=== PATIENT | female | born 1950 | race Caucasian/White ===

== ENCOUNTER 2019-04-02 14:28 | Emergency (ER) | payer MEDICARE ==
[~2019-04-02] VITALS: Ht 165.1 cm; Wt 88.9 kg
--- NOTE | 2019-04-02 14:35 | NUR ---
DR ALEJANDRE AT BEDSIDE
--- NOTE | 2019-04-02 14:35 | NUR ---
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 ON PREDNISONE X 3 DAYS FOR ASTHMA. TO ER BED 7, HOOKED TO MONITOR, CHANGED TO GOWN, AWAITING MD RODRIGUEZ.
[2019-04-02 14:50] LABS: BASOPHILS # (AUTO) 0.1 /CMM (0.0-0.2); BASOPHILS % (AUTO) 0.4 % (0.0-2.0); EOSINOPHILS % (AUTO) 0.3 % (0.0-6.0); HEMATOCRIT 44 % (33-45); HEMOGLOBIN 14.4 g/dL (11.5-14.8); LYMPHOCYTES # (AUTO) 1.1 /CMM (0.8-4.8); LYMPHOCYTES % (AUTO) 8.1 % (20.0-44.0); MEAN CORPUSCULAR HGB CONC 33 g/dl (31.0-36.0); MEAN CORPUSCULAR VOLUME 86 fL (82-100); MONOCYTES # (AUTO) 0.5 /CMM (0.1-1.30); MONOCYTES % (AUTO) 3.5 % (2.0-12.0); NEUTROPHILS # (AUTO) 11.8 /CMM (1.8-8.9); NEUTROPHILS % (AUTO) 87.7 % (43.0-81.0); PLATELET COUNT (AUTO) 345 /CMM (150-450); RED BLOOD CELL COUNT(AUTO) 5.15 MIL/uL (4.0-5.2); WHITE BLOOD COUNT (AUTO) 13.5 K/uL (4.3-11.0)
[2019-04-02] MEDS ORDERED: IV NS 0.9% 1,000 ML BAG IV ONE ×3 (15:00→16:30)
[2019-04-02 15:17] LABS: CALCIUM, SERUM 9.7 mg/dL (8.5-10.1); CREATININE 1.1 mg/dL (0.6-1.3); POTASSIUM 3.9 mmol/L (3.5-5.1)
[2019-04-02] MEDS ORDERED: INSULIN REGULAR, HUMAN 100 UNIT/ML 10 ML VIAL SQ ONE (16:00)
--- NOTE | 2019-04-02 17:33 | NUR ---
IV removed. Catheter intact and site benign. Pressure and 4x4 applied to site. No bleeding noted.Patient discharged to home with friend Joyce Rosie in stable condition. Written and verbal after care instructions given. Patient verbalizes understanding of instruction.
[2019-04-02 17:35] VITALS: BP 146/80
== END 2019-04-02 17:35 | disposition home or self-care (01) ==
LOC: ER 14:30
DX: E11.65 Type 2 diabetes mellitus with hyperglycemia (principal); R79.89 Other specified abnormal findings of blood chemistry; E86.0 Dehydration; D72.829 Elevated white blood cell count, unspecified; E87.1 Hypo-osmolality and hyponatremia; J44.9 Chronic obstructive pulmonary disease, unspecified; I10 Essential (primary) hypertension; E03.9 Hypothyroidism, unspecified; E78.5 Hyperlipidemia, unspecified; E66.9 Obesity, unspecified; Z68.32 Body mass index [BMI] 32.0-32.9, adult; Z79.51 Long term (current) use of inhaled steroids; Z88.2 Allergy status to sulfonamides; Z60.2 Problems related to living alone
CPT/HCPCS: 80048; 82010; 82962; 85025; 93005; 96360; 99284; J7030; J7040

== ENCOUNTER 2024-10-20 18:22 | Inpatient (IN) | payer MEDICARE ==
[~2024-10-20] VITALS: Ht 165.1 cm; Wt 89.0 kg
[2024-10-20 18:54] LABS: BASOPHILS % (AUTO) 0.2 % (0.0-2.0); HEMATOCRIT 45 % (33-45); LYMPHOCYTES % (AUTO) 12.6 % (20.0-44.0); MEAN CORPUSCULAR HEMOGLOBIN 28 PG (26.0-33.0); MEAN CORPUSCULAR HGB CONC 34 g/dl (31.0-36.0); MEAN CORPUSCULAR VOLUME 82 fL (82-100); MONOCYTES # (AUTO) 1.2 K/uL (0.1-1.30); MONOCYTES % (AUTO) 7.7 % (2.0-12.0); NEUTROPHILS # (AUTO) 12.3 K/uL (1.8-8.9); NEUTROPHILS % (AUTO) 79.5 % (43.0-81.0); PLATELET COUNT (AUTO) 327 K/uL (150-450); RED BLOOD CELL COUNT(AUTO) 5.43 MIL/uL (4.0-5.2); RED CELL DISTRIBUTION WIDTH 15.2 % (11.5-15.0); WHITE BLOOD COUNT (AUTO) 15.5 K/uL (4.3-11.0)
[2024-10-20 19:05] LABS: CALCIUM, SERUM 9.5 mg/dL (8.5-10.1); CARBON DIOXIDE 25 mmol/L (21-32); CHLORIDE 99 mmol/L (98-107); CREATININE 0.8 mg/dL (0.6-1.3); GLUCOSE 188 mg/dL (74-106); POTASSIUM 3.9 mmol/L (3.5-5.1); SODIUM SERUM 136 mmol/L (136-145); UREA NITROGEN, BLOOD 18 mg/dL (7-18)
[2024-10-20 19:12] LABS: ALANINE AMINOTRANSFERASE 21 U/L (12-78); ALBUMIN 3.9 g/dL (3.4-5.0); ALKALINE PHOSPHATASE 114 U/L (46-116); ASPARTATE AMINOTRANSFERASE 17 U/L (15-37); BILIRUBIN,DIRECT 0.2 mg/dL (0.0-0.2); BILIRUBIN,TOTAL 0.7 mg/dL (0.2-1.0); TOTAL PROTEIN, SERUM 7.8 g/dL (6.4-8.2)
[2024-10-20] MEDS ORDERED: PIPERACI/TAZO 3.375GM/D5W 50ML PB IV ONE (19:13)
[2024-10-20] MEDS ORDERED: VANCOMYCIN 1 GM /D5W 250 ML PB IV ONE (19:13)
[2024-10-20 19:24] LABS: SERUM AMMONIA < 10 umol/L (11-32)
[2024-10-20] MEDS: VANCOMYCIN 1 GM in IV D5W 250 ML IV ONE (19:30)
[2024-10-20] MEDS: IV NS 0.9% 1,000 ML BAG IV ONE (19:30)
[2024-10-20] MEDS: PIPERACILLIN /TAZOBACTAM 3.375 G in IV D5W 50 ML IV ONE (19:30)
[2024-10-20 19:32] LABS: INR 1.07 (0.91-1.10)
[2024-10-20] MEDS: LORAZEPAM INJ 2 MG/ML VIAL IV ONE (20:07)
[2024-10-20] MEDS ORDERED: LORAZEPAM INJ 2 MG/ML VIAL ONE (20:08)
[2024-10-20 20:16] LABS: APPEARANCE,URINE SLIGHTLY CLOUDY (CLEAR); BILIRUBIN,URINE NEGATIVE (NEGATIVE); BLOOD, URINE 1+ Ery/uL (NEGATIVE); COLOR,URINE YELLOW (YELLOW); KETONES,URINE 3+ mg/dL (NEGATIVE); LEUKOCYTE ESTERASE ,URINE NEGATIVE (NEGATIVE); NITRITE, URINE NEGATIVE (NEGATIVE); PROTEIN,URINE 1+ mg/dl (NEGATIVE); UGLUCOSE 1+ mg/dL (NEGATIVE); UROBILINOGEN,URINE 0.2 EU/dL (0.2)
[2024-10-20 20:35] LABS: SQUAMOUS EPITHELIAL CELL,UR Many /HPF (None Seen)
[2024-10-20 20:37] LABS: ADD URINE CULTURE YES; BACTERIA,URINE Moderate /HPF (None Seen)
[2024-10-20] MEDS: ENOXAPARIN SODIUM 40 MG/0.4 ML DISP.SYRIN SQ SCH (21:30)
[2024-10-20] MEDS ORDERED: MAGNESIUM HYDROXIDE 30 ML UDC PO PRN (21:30)
[2024-10-20] MEDS ORDERED: ACETAMINOPHEN 325 MG TABLET PO PRN (21:30)
[2024-10-20] MEDS ORDERED: ONDANSETRON HCL/PF 4 MG/2 ML VIAL IVP PRN (21:30)
[2024-10-20] MEDS ORDERED: MAG HYDROX/AL HYDROX/SIMETH 30 ML UDC PO PRN (21:30)
[2024-10-20] MEDS ORDERED: ENOXAPARIN SODIUM 40 MG/0.4 ML DISP.SYRIN SQ ONE (22:15)
[2024-10-20] MEDS ORDERED: DEXTROSE 50%-WATER 50 ML DISP.SYRIN IV PRN (22:30)
[2024-10-20] MEDS: ACETAMINOPHEN 650 MG/SUPP.RECT RC PRN (23:09)
[2024-10-21] MEDS: IV NS 0.9% 1,000 ML IV PRN (00:47)
[2024-10-21 00:55] VITALS: BP 132/65; TEMP 99; O2SAT 98
[2024-10-21] MEDS ORDERED: PIPERACILLIN /TAZOBACTAM 3.375 G in IV D5W 50 ML IV SCH (03:30)
[2024-10-21 04:00] VITALS: BP 111/67; TEMP 99.3; O2SAT 97
[2024-10-21] MEDS: PIPERACILLIN /TAZOBACTAM 3.375 G in IV D5W 50 ML IV SCH (04:30)
[2024-10-21] MEDS: PIPERACI/TAZO 3.375GM/D5W 50ML PB IV ONE (04:30)
[2024-10-21 06:56] LABS: BASOPHILS % (AUTO) 0.1 % (0.0-2.0); HEMATOCRIT 36 % (33-45); HEMOGLOBIN 11.9 g/dL (11.5-14.8); LYMPHOCYTES # (AUTO) 1.3 K/uL (0.8-4.8); LYMPHOCYTES % (AUTO) 10.9 % (20.0-44.0); MEAN CORPUSCULAR HEMOGLOBIN 28 PG (26.0-33.0); MEAN CORPUSCULAR HGB CONC 33 g/dl (31.0-36.0); MEAN CORPUSCULAR VOLUME 83 fL (82-100); MONOCYTES # (AUTO) 1.3 K/uL (0.1-1.30); NEUTROPHILS # (AUTO) 9.1 K/uL (1.8-8.9); PLATELET COUNT (AUTO) 220 K/uL (150-450); RED BLOOD CELL COUNT(AUTO) 4.29 MIL/uL (4.0-5.2); RED CELL DISTRIBUTION WIDTH 15.3 % (11.5-15.0); WHITE BLOOD COUNT (AUTO) 11.7 K/uL (4.3-11.0)
[2024-10-21 07:06] LABS: LACTIC ACID 1.3 mmol/L (0.4-2.0)
[2024-10-21 07:20] LABS: CALCIUM, SERUM 7.7 mg/dL (8.5-10.1); CREATININE 0.6 mg/dL (0.6-1.3); MAGNESIUM 1.4 mg/dL (1.8-2.4); PHOSPHORUS 3.8 mg/dL (2.5-4.9); POTASSIUM 3.5 mmol/L (3.5-5.1)
[2024-10-21 08:00] VITALS: BP 108/74; TEMP 97.7
[2024-10-21] MEDS: BLOOD SUGAR DIAGNOSTIC 1 EACH STRIP IN SCH (09:26)
[2024-10-21] MEDS ORDERED: INSU100V37 SQ (09:27)
[2024-10-21] MEDS ORDERED: SEMA1PEN SQ (09:27)
[2024-10-21] MEDS ORDERED: AMLO5TAB4 PO (09:27)
[2024-10-21] MEDS ORDERED: ASPI-1169 PO (09:27)
[2024-10-21] MEDS ORDERED: METF-440 PO (09:27)
[2024-10-21] MEDS ORDERED: LEVO100T9 PO (09:27)
[2024-10-21] MEDS ORDERED: ATEN50TA PO (09:27)
[2024-10-21] MEDS ORDERED: INSU100V SQ (09:27)
[2024-10-21] MEDS: VANCOMYCIN 750 MG in IV D5W 250 ML IV SCH (09:34)
[2024-10-21] MEDS: PANTOPRAZOLE 40 MG VIAL IV SCH (09:53)
[2024-10-21] MEDS ORDERED: METO50TA16 PO (10:10)
[2024-10-21] MEDS ORDERED: LEVO88TA5 PO (10:10)
[2024-10-21] MEDS ORDERED: ASPI-992 PO (10:10)
[2024-10-21] MEDS ORDERED: ALBU8.5H8 IH (10:10)
[2024-10-21] MEDS ORDERED: ROSU10TA29 PO (10:10)
[2024-10-21] MEDS ORDERED: TRELLEGY ELLIPTA IH (10:10)
[2024-10-21] MEDS ORDERED: METF-881 PO (10:10)
[2024-10-21] MEDS ORDERED: MONT10TA22 PO (10:10)
[2024-10-21] MEDS: Magnesium 1GM/D5W 100ML PREMIX 100 ML IV SCH (11:03)
[2024-10-21 12:00] VITALS: BP 131/68; TEMP 97.6; O2SAT 97
[2024-10-21] MEDS: PIPERACILLIN /TAZOBACTAM 3.375 G in IV D5W 100 ML IV SCH (13:06)
[2024-10-21 16:00] VITALS: BP 108/53; TEMP 97.6; O2SAT 100
[2024-10-21] MEDS: INSULIN REGULAR, HUMAN 100 UNIT/ML 3 ML VIAL SQ PRN (17:37)
[2024-10-21 20:00] VITALS: BP 148/75; TEMP 97.5; O2SAT 96
[2024-10-22 05:00] VITALS: BP 130/73; TEMP 97.7; O2SAT 96
[2024-10-22 05:42] VITALS: BP 130/73; TEMP 97.7; O2SAT 97
[2024-10-22 07:44] LABS: BASOPHILS % (AUTO) 0.1 % (0.0-2.0); HEMATOCRIT 38 % (33-45); HEMOGLOBIN 12.7 g/dL (11.5-14.8); LYMPHOCYTES # (AUTO) 1.6 K/uL (0.8-4.8); LYMPHOCYTES % (AUTO) 19.6 % (20.0-44.0); MEAN CORPUSCULAR HEMOGLOBIN 27 PG (26.0-33.0); MEAN CORPUSCULAR HGB CONC 33 g/dl (31.0-36.0); MEAN CORPUSCULAR VOLUME 82 fL (82-100); MONOCYTES # (AUTO) 0.8 K/uL (0.1-1.30); MONOCYTES % (AUTO) 9.6 % (2.0-12.0); NEUTROPHILS # (AUTO) 5.7 K/uL (1.8-8.9); NEUTROPHILS % (AUTO) 70.7 % (43.0-81.0); PLATELET COUNT (AUTO) 203 K/uL (150-450); RED BLOOD CELL COUNT(AUTO) 4.66 MIL/uL (4.0-5.2); RED CELL DISTRIBUTION WIDTH 15.2 % (11.5-15.0); WHITE BLOOD COUNT (AUTO) 8.1 K/uL (4.3-11.0)
[2024-10-22 07:49] LABS: CALCIUM, SERUM 8.5 mg/dL (8.5-10.1); CREATININE 0.6 mg/dL (0.6-1.3); POTASSIUM 3.3 mmol/L (3.5-5.1)
[2024-10-22 08:00] VITALS: BP 150/78; TEMP 97.7; O2SAT 97
[2024-10-22] MEDS: VANCOMYCIN 1 GM in IV D5W 250ml IV SCH (09:09)
[2024-10-22] MEDS ORDERED: POTASSIUM CHLORIDE 20 MEQ POWDER PACKET PO ONE (09:30)
[2024-10-22] MEDS: POTASSIUM CHLORIDE 20 MEQ POWDER PACKET PO ONE (13:00)
[2024-10-22 20:00] VITALS: BP 155/81; TEMP 98.2; O2SAT 97
[2024-10-23 04:00] VITALS: BP 133/74; TEMP 98.1; O2SAT 97
[2024-10-23 06:46] LABS: BASOPHILS # (AUTO) 0.1 K/uL (0.0-0.2); BASOPHILS % (AUTO) 0.7 % (0.0-2.0); HEMATOCRIT 38 % (33-45); HEMOGLOBIN 12.5 g/dL (11.5-14.8); LYMPHOCYTES # (AUTO) 1.4 K/uL (0.8-4.8); LYMPHOCYTES % (AUTO) 19.1 % (20.0-44.0); MEAN CORPUSCULAR HEMOGLOBIN 27 PG (26.0-33.0); MEAN CORPUSCULAR HGB CONC 33 g/dl (31.0-36.0); MEAN CORPUSCULAR VOLUME 82 fL (82-100); MONOCYTES # (AUTO) 0.7 K/uL (0.1-1.30); MONOCYTES % (AUTO) 9.1 % (2.0-12.0); NEUTROPHILS # (AUTO) 5.3 K/uL (1.8-8.9); NEUTROPHILS % (AUTO) 71.1 % (43.0-81.0); PLATELET COUNT (AUTO) 209 K/uL (150-450); RED BLOOD CELL COUNT(AUTO) 4.63 MIL/uL (4.0-5.2); RED CELL DISTRIBUTION WIDTH 15.2 % (11.5-15.0); WHITE BLOOD COUNT (AUTO) 7.4 K/uL (4.3-11.0)
[2024-10-23 06:51] LABS: CALCIUM, SERUM 8.7 mg/dL (8.5-10.1); CREATININE 0.7 mg/dL (0.6-1.3); POTASSIUM 2.9 mmol/L (3.5-5.1)
[2024-10-23 08:00] VITALS: BP 138/89; TEMP 98.2; O2SAT 98
[2024-10-23] MEDS ORDERED: LEVO500T90 PO (10:29)
[2024-10-23] MEDS ORDERED: SEMAGLUTIDE 2 MG SQ SCH (10:30)
[2024-10-23] MEDS ORDERED: ALBUTEROL FS 2.5 MG/3 ML VIAL.NEB IH PRN (11:30)
[2024-10-23] MEDS: AMLODIPINE BESYLATE 5 MG TABLET PO SCH (11:55)
[2024-10-23] MEDS: METFORMIN XR 500 MG TAB.SR.24H PO SCH (11:55)
[2024-10-23] MEDS: POTASSIUM CHLORIDE 20 MEQ POWDER PACKET PO SCH (11:56)
[2024-10-23] MEDS: INSULIN GLARGINE, 100 UNIT/ML CARTRIDGE SQ SCH (12:55)
[2024-10-23 17:02] VITALS: BP 162/72
[2024-10-23] MEDS: METOPROLOL TARTRATE 50 MG TABLET PO SCH (17:02)
[2024-10-23] MEDS: ATORVASTATIN 40 MG TABLET PO SCH (17:03)
[2024-10-24] MEDS ORDERED: MONTELUKAST SODIUM (10MG) 10 MG TABLET PO SCH (09:00)
[2024-10-24] MEDS ORDERED: LEVOTHYROXINE SODIUM 88 MCG TABLET PO SCH (09:00)
[2024-10-24] MEDS ORDERED: TRELLEGY ELLIPTA IH SCH (09:00)
[2024-10-24] MEDS ORDERED: ASPIRIN 325 MG TABLET PO SCH (09:00)
== END 2024-10-23 18:38 | DRG 871 ==
LOC: ER 18:26 → TELE1 23:18 → MEDSG1 10-21 15:45
PROVIDERS: ATTEND Internal Medicine
DX: A41.9 Sepsis, unspecified organism (principal); G93.41 Metabolic encephalopathy; J15.69 Pneumonia due to other Gram-negative bacteria; N39.0 Urinary tract infection, site not specified; E87.20 Acidosis, unspecified; J98.11 Atelectasis; J90 Pleural effusion, not elsewhere classified; F01.50 Vascular dementia, unspecified severity, without behavioral disturbance, psychotic disturbance, mood disturbance, and anxiety; Z20.822 Contact with and (suspected) exposure to COVID-19; E78.00 Pure hypercholesterolemia, unspecified; J45.909 Unspecified asthma, uncomplicated; Z88.2 Allergy status to sulfonamides; Z96.652 Presence of left artificial knee joint; B96.89 Other specified bacterial agents as the cause of diseases classified elsewhere; E11.9 Type 2 diabetes mellitus without complications; E03.9 Hypothyroidism, unspecified; Z68.32 Body mass index [BMI] 32.0-32.9, adult; E66.9 Obesity, unspecified; Z95.1 Presence of aortocoronary bypass graft; Z79.51 Long term (current) use of inhaled steroids; Z79.84 Long term (current) use of oral hypoglycemic drugs; Z79.890 Hormone replacement therapy; Z79.82 Long term (current) use of aspirin; Z79.899 Other long term (current) drug therapy; Z79.85 Long-term (current) use of injectable non-insulin antidiabetic drugs; I11.9 Hypertensive heart disease without heart failure
CPT/HCPCS: 36415; 70450-TC; 71045-TC; 80048-TC; 80076-TC; 80202-TC; 81001; 82140-TC; 82962-TC; 83605-TC; 83735-TC; 84100-TC; 84443-TC; 84484-TC; 85025-TC; 85730-TC; 87040-TC; 87086-TC; 92526; 92611-TC; 93307-TC; 97110-TC; 97116-TC; 97530-TC; A4223; G0378; J1650; J1815; J2060; J2470; J2543; J3370; J3371; J3475; J3490; J7030; J7060